=== PATIENT | male | born 1985 | race Caucasian/White ===

== ENCOUNTER 2021-08-20 03:11 | Emergency (ER) | payer OTHER ==
[~2021-08-20] VITALS: Ht 172.7 cm; Wt 63.5 kg
[2021-08-20 03:14] VITALS: BP 133/84
[2021-08-20] MEDS ORDERED: SULF1TAB48 PO (03:44)
[2021-08-20] MEDS ORDERED: KETO120S5 TP (03:44)
== END 2021-08-20 04:15 | disposition home or self-care (01) ==
LOC: ER 03:11
DX: L03.114 Cellulitis of left upper limb (principal); L03.113 Cellulitis of right upper limb; L03.319 Cellulitis of trunk, unspecified; L40.8 Other psoriasis; Z60.2 Problems related to living alone; Z79.899 Other long term (current) drug therapy

== ENCOUNTER 2021-09-06 15:30 | Emergency (ER) | payer OTHER ==
[~2021-09-06] VITALS: Ht 172.7 cm; Wt 63.5 kg
[~2021-09-06 15:30] MED LIST: KETO120S5 TP; SULF1TAB48 PO
--- NOTE | 2021-09-06 15:50 | NUR ---
DR COLON AT BEDSIDE
[2021-09-06] MEDS ORDERED: HYDROCODONE/APAP 5/325MG TABLET PO ONE (16:00)
[2021-09-06] MEDS ORDERED: IBUPROFEN 600 MG TABLET PO ONE (16:00)
[2021-09-06] MEDS ORDERED: HYDROCODONE/APAP 5/325MG TABLET ONE (16:14)
[2021-09-06] MEDS ORDERED: IBUPROFEN 600 MG TABLET ONE (16:15)
[2021-09-06] MEDS ORDERED: IBUP-1957 PO (16:57)
--- NOTE | 2021-09-06 17:04 | NUR ---
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
--- NOTE | 2021-09-06 17:19 | NUR ---
Patient given written and verbal discharge instructions. Patient verbalizes understanding of instructions. Patient is ambulatory with steady gait. Refuses offer of residential placement. Patient given list of available shelters in surrounding area. Bicycle given to patient. Name band removed. In proper clothing upon discharge
[2021-09-06 17:21] VITALS: BP 119/69
== END 2021-09-06 17:21 | disposition home or self-care (01) ==
LOC: ER 15:39
DX: S62.101A Fracture of unspecified carpal bone, right wrist, initial encounter for closed fracture (principal); S60.512A Abrasion of left hand, initial encounter; Z60.2 Problems related to living alone; Z79.899 Other long term (current) drug therapy; V13.4XXA Pedal cycle driver injured in collision with car, pick-up truck or van in traffic accident, initial encounter; Y93.89 Activity, other specified; Y92.89 Other specified places as the place of occurrence of the external cause; Y99.8 Other external cause status
CPT/HCPCS: 73110

== ENCOUNTER 2021-10-21 03:16 | Emergency (ER) | payer OTHER ==
[~2021-10-21] VITALS: Ht 172.7 cm; Wt 70.3 kg
[~2021-10-21 03:16] MED LIST changes: +IBUP-1957 PO
[2021-10-21 03:26] VITALS: BP 112/68
[2021-10-21] MEDS ORDERED: CEPH500T PO (03:54)
[2021-10-21] MEDS ORDERED: DIPH50CA4 PO (03:54)
[2021-10-21] MEDS ORDERED: PERM60CR4 TP (03:54)
--- NOTE | 2021-10-21 04:08 | NUR ---
Patient discharged to home in stable condition. Written and verbal after care instructions given. Patient verbalizes understanding of instruction. Pt ambulatory with a steady gait
== END 2021-10-21 04:09 | disposition home or self-care (01) ==
LOC: ER 03:20
DX: L03.116 Cellulitis of left lower limb (principal); L03.115 Cellulitis of right lower limb; F17.200 Nicotine dependence, unspecified, uncomplicated; Z60.2 Problems related to living alone; Z79.899 Other long term (current) drug therapy

== ENCOUNTER 2025-03-05 08:41 | Emergency (ER) | payer OTHER ==
[~2025-03-05] VITALS: Ht 172.7 cm; Wt 63.5 kg
[~2025-03-05 08:41] MED LIST changes: +CEPH500T PO; +DIPH50CA4 PO; +PERM60CR4 TP
[2025-03-05 08:49] VITALS: BP 123/73; TEMP 98
[2025-03-05] MEDS ORDERED: CYCLOBENZAPRINE 10 MG TABLET ONE (09:04)
[2025-03-05] MEDS ORDERED: IBUPROFEN 600 MG TABLET ONE (09:04)
[2025-03-05] MEDS: CYCLOBENZAPRINE 10 MG TABLET PO ONE (09:09)
[2025-03-05] MEDS: IBUPROFEN 600 MG TABLET PO ONE (09:12)
[2025-03-05] MEDS ORDERED: CYCL5TAB PO (09:13)
[2025-03-05 09:23] VITALS: O2SAT 98
== END 2025-03-05 09:24 | disposition home or self-care (01) ==
LOC: ER 08:45
DX: M54.50 Low back pain, unspecified (principal); F17.200 Nicotine dependence, unspecified, uncomplicated; Z79.1 Long term (current) use of non-steroidal anti-inflammatories (NSAID); Z60.2 Problems related to living alone